=== PATIENT | female | born 1975 | race Caucasian/White ===

== ENCOUNTER → 2022-02-08 | Outpatient (CLI) | payer BC | LOC: MC.RAD 14:37 | DX: Z12.31 Encounter for screening mammogram for malignant neoplasm of breast (principal) ==

== ENCOUNTER → 2024-04-26 | Outpatient (CLI) | payer BC | LOC: MC.RAD 14:33 | DX: Z12.31 Encounter for screening mammogram for malignant neoplasm of breast (principal) ==